=== PATIENT | male | born 1985 | race Caucasian/White ===

== ENCOUNTER 2018-06-17 00:04 | Emergency (ER) | payer OTHER ==
[2018-06-17] MEDS ORDERED: DIPH/PERTUSS(ACELL)/TETANUS VAC/PF 0.5 ML SYR (>=10YO) IM ONE (01:14)
[2018-06-17] MEDS ORDERED: CEPHALEXIN 500 MG CAPSULE PO ONE (01:14)
--- NOTE | 2018-06-17 01:17 | ER Document Report ---
ED General - General Chief Complaint: Finger Injury Stated Complaint: RIGHT INDEX FINGER PAIN Time Seen by Provider: 06/17/18 01:04 Primary Care Provider: JUAN FRANCISCO NORMAN DO [ACTIVE STAFF] - Follow up in 1 week Notes: Patient is a pleasant 32-year-old male who presents with complaint of a possible splinter in his right index finger. Says he removed part of it. He thinks there may still be some in his finger. He says he is working on a piece of wood and when he ran his head down the piece of wood splinter got caught in his finger. He said he heated up a needle and was able to prop part of this splinter. He denies any other injuries or any other concerns. Is unsure when his last tetanus shot was. TRAVEL OUTSIDE OF THE [place] IN LAST 30 DAYS: No - Related Data Allergies/Adverse Reactions: No Known Allergies Allergy (Unverified 06/17/18 01:29) Past Medical History - Social History Smoking Status: Unknown if Ever Smoked Frequency of alcohol use: None Drug Abuse: None Family History: Reviewed & Not Pertinent Patient has suicidal ideation: No Patient has homicidal ideation: No Renal/ Medical History: Denies: Hx Peritoneal Dialysis Review of Systems - Review of Systems Notes: My Normal Review Basic REVIEW OF SYSTEMS: CONSTITUTIONAL : Denies fever, chills, or sweats. Denies recent illness. MUSCULOSKELETAL: Splinter in the right second digit. SKIN: Denies rash or skin lesions. NEUROLOGICAL: Denies sensory or motor loss. ALL OTHER SYSTEMS REVIEWED AND NEGATIVE. Physical Exam - Vital signs Vitals: Temp Pulse Resp BP Pulse Ox 98.8 F 87 16 157/93 H 99 06/17/18 00:25 06/17/18 00:25 06/17/18 00:25 06/17/18 00:25 06/17/18 00:25 - Notes Notes: General Appearance: Well nourished, alert, cooperative, no acute distress, no obvious discomfort. Appearing. Vitals: reviewed, See vital signs table. Extremities: Patient has a small area of excoriation over the pad of the second digit from where he dug out the part of the splinter. I palpate over the area did not feel another firm foreign body beneath the skin. Fingers are slightly swollen but not red or erythematous. No abnormal drainage. No active bleeding. Neuro: speech clear, oriented x 3, normal affect, responds appropriately to questions. Normal distal sensation in the right second digit. Course - Re-evaluation Re-evalutation: 06/17/18 06:00 On exam I do not appreciate a foreign body however informed patient there could still be a small piece of splinter still in his finger. Informed his to be very difficult to tell. Informed him with you with x-ray small pieces of wood will not show up well. I informed him was to be happy to get an x-ray however I do not think it be appropriate to go digging and coming up in his finger to look for a possible very small splinter. Informed him that we potentially do more damage to his finger than any good. I told him that my recognition would be to place him antibiotics to help prevent infection and to wait to see if splinter works his way to its surface. If he continues to have pain or if he feels that his fingers not improving then he can follow-up with a hand surgeon for evaluation. I will give him a tetanus shot as he is unsure of his last tetanus shot was. I encouraged her return to ER immediately if he has increasing swelling, redness, or any signs of infection. Patient agrees with plan and will be discharged home. Dictation of this chart was performed using voice recognition software; therefore, there may be some unintended grammatical errors. - Vital Signs Vital signs: Temp Pulse Resp BP Pulse Ox 98.2 F 67 17 131/85 H 99 06/17/18 01:29 06/17/18 01:29 06/17/18 01:29 06/17/18 01:29 06/17/18 01:29 Discharge - Discharge Clinical Impression: Splinter Condition: Good Disposition: HOME, SELF-CARE Additional Instructions: Please take the antibiotics as prescribed. Please return to the ER if you have increasing redness in the finger, swelling, or feel that you finger is becoming infected. I have included the phone number to the hand surgeon, Dr. Norman. Call him for follow up if you continue to have irritation in your finger after 5-7 days. Prescriptions: Cephalexin Monohydrate [Keflex 500 mg Capsule] 500 mg PO BID #10 capsule Referrals: JUAN FRANCISCO NORMAN DO [ACTIVE STAFF] - Follow up in 1 week
[2018-06-17 01:29] VITALS: BP 131/85
== END 2018-06-17 01:29 | disposition home or self-care (01) ==
LOC: ER 00:04
DX: S60.450A Superficial foreign body of right index finger, initial encounter (principal); W45.8XXA Other foreign body or object entering through skin, initial encounter; Z23 Encounter for immunization
CPT/HCPCS: 90471; 90715; 99283